=== PATIENT | male | born 1975 | race Hispanic/Latino ===

== ENCOUNTER 2019-11-05 09:15 | Emergency (ER) | payer OTHER, SELFPAY ==
[2019-11-05 09:20] VITALS: BP 131/82; PULSE 81; RESP 18; TEMP 36.4; O2SAT 100
--- NOTE | 2019-11-05 09:26 | ED_ITS ---
HPI - Head Injury General Chief complaint: Head Injury Stated complaint: hit in head at work Time Seen by Provider: 11/05/19 09:20 Source: patient Mode of arrival: Ambulatory Limitations: no limitations History of Present Illness HPI Narrative: Patient is a 44-year-old male who presents with a work-related head injury. A large panel of would fell on top of his head he fell to the ground and there was a brief loss consciousness. He was slightly confused after the event. He is having some neck discomfort no nausea, vomiting or weakness. He is not on any anti-platelet or anticoagulation medication. Complaint: head injury Place: work Loss of Consciousness: yes Location of injury: parietal Related Data Home Medications Medication Instructions Recorded Confirmed ibuprofen 200 mg PO Q6H PRN 11/05/19 11/05/19 Allergies Allergy/AdvReac Type Severity Reaction Status Date / Time No Known Drug Allergies Allergy Verified 11/05/19 09:25 Review of Systems Review of Systems ROS Unobtainable: All systems reviewed & are unremarkable except as noted in HPI and below Constitutional Constitutional: Denies chills, Denies fever(s), Reports headache(s), Denies lethargy and Denies weakness ENT Ears, Nose, Mouth, and Throat: Reports headache(s) Cardiovascular Cardiovascular: Denies chest pain, Denies irregular heart rhythm, Denies lightheadedness, Denies palpitations, Denies dyspnea, Denies dyspnea on exertion and Denies orthopnea Respiratory Respiratory: Denies cough, Denies dyspnea, Denies dyspnea on exertion and Denies wheezing Musculoskeletal Musculoskeletal: Reports as per HPI Integumentary/Breasts Skin/Breast: Denies pruritus, Denies erythema, Denies rash and Denies wounds Neurologic Neurologic: Reports as per HPI, Reports headache(s) and Denies weakness Endocrine Endocrine: Denies palpitations Allergic/Immunologic Allergic/Immunologic: Denies wheezing Patient History Medical History Patient denies medical problems (Acute) Social History Smoking Status: Never smoker Smoking Status: Never smoker alcohol intake frequency: 0-2 drinks per day Substance Use Type: does not use Exam Initial Vital Signs Initial Vital Signs: Vital Signs Temperature 97.6 F 11/05/19 09:20 Pulse Rate 81 11/05/19 09:20 Respiratory Rate 18 11/05/19 09:20 Blood Pressure 131/82 11/05/19 09:20 Pulse Oximetry 100 11/05/19 09:20 GENERAL: Well-appearing, well-nourished and in no acute distress. HEENT: Head contusion noted right parietal area no laceration,EOMI, pupils reactive, face symmetric, moist mucous membranes Neck: Mild vertebral tenderness more on the right side BACK: No vertebral tenderness or step-off CARDIOVASCULAR: Regular rate and rhythm without murmurs, rubs or gallops. RESPIRATORY: Breath sounds equal bilaterally, no wheezes rales or rhonchi. ABDOMEN: Soft, nontender. Normoactive bowel sounds all 4 quadrants. No guarding or rebound. EXTREMITIES: Normal range of motion, no clubbing or edema. Neurovascularly intact NEUROLOGICAL: Alert and oriented x4.Normal gait and speech. Cranial nerves II through XII grossly intact. Strength in upper extremities equal bilaterally SKIN: Warm, dry, no laceration, no petechiae, no rashes or lesions. Scores GCS Lucero coma scale eye opening: Spontaneous Warriors Mark coma scale verbal response: Orientated Warriors Mark coma scale motor response: Obey commands Warriors Mark coma scale total score: 15 Course Orders Ordered: ED Orders 11/05/19 09:25 CT head/brain wo con Stat 11/05/19 09:28 CT cervical spine wo con Stat Discontinued Medications Ibuprofen (Advil) 800 mg PO NOW ONE Stop: 11/05/19 09:49 Last Admin: 11/05/19 09:55 Dose: 800 mg Documented by: CHRISTINE Ketorolac Tromethamine (Toradol) 30 mg IM NOW ONE Stop: 11/05/19 09:48 Last Admin: 11/05/19 09:51 Dose: Not Given Documented by: CHRISTINE Vital Signs Vital signs: Vital Signs - 8 hr 11/05/19 09:20 Temperature 97.6 F Pulse Rate 81 Respiratory Rate 18 Blood Pressure 131/82 Pulse Oximetry 100 MDM - Head Injury Imaging Data CT scan - head: Radiologist's Impression: PROCEDURE: CT HEAD/BRAIN WO CON INDICATIONS: 40 pound weight fall on head and neck right side of head today TECHNIQUE: Noncontrast 4.5 mm thick angled axial sections acquired from the foramen magnum to the vertex, with coronal and sagittal reformats. For radiation dose reduction, the following was used: automated exposure control, adjustment of mA and/or kV according to patient size. COMPARISON: [facility], CT, CT CERVICAL SPINE WO CON, 11/05/2019, 9:30. FINDINGS: Image quality: Diagnostic, with note made of motion artifact. CSF spaces: Basal cisterns are patent. No extra-axial fluid collections. Ventricles are normal in size and shape. Brain: No midline shift. No intracranial masses or hemorrhage. Manzo-white matter interface is normal. Skull and face: There is a soft tissue hematoma seen involving the right later al scalp, as on series 2, image 31. No underlying calvarial fracture is seen. Calvarium and visualized facial bones are intact, without suspicious lesions. Sinuses: There is subtotal opacification seen involving the left maxillary sinus. There is moderate mucosal thickening within the right maxillary sinus. The frontal sinuses are nearly completely opacified. The ethmoid air cells are completely opacified. Moderate mucosal thickening is seen involving the left sphenoid sinus. No significant mastoid abnormality is seen. The medial rincon of the maxillary sinuses have been removed. The middle turbinates are not seen. The remainder of the nasal bony structures are demineralized. There is abnormal soft tissue material seen within the nasal cavity, particularly superiorly. IMPRESSION: Scalp hematoma, without associated fracture. No acute intracranial process is seen. No acute intracranial hemorrhage is seen. Prominent paranasal sinus disease, with prior surgery. Abnormal soft tissue can also seen within the nasal cavity. Polyp disease is suspected. Please correlate with known patient history. Dictated by: Jim Rutherford M.D. on 11/05/2019 at 8:39 Approved by: Jim Rutherford M.D. on 11/05/2019 at 8:42 CT - cervical spine: Radiologist's Impression: PROCEDURE: CT CERVICAL SPINE WO CON INDICATIONS: weight fall on right side of head neck today TECHNIQUE: Noncontrast 3 mm thick sections acquired from the skull base to the T4 level. Sagittal and coronal reformats were then constructed. For radiation dose reduction, the following was used: automated exposure control, adjustment of mA and/or kV according to patient size. COMPARISON: [facility], CT, CT HEAD/BRAIN WO CON, 11/05/2019, 9:30. FINDINGS: Image quality: This examination is somewhat limited by quantum mottle artifact. Bones: No fractures or dislocations. Visualized superior ribs are intact. There is moderate loss of disc height seen at the C6-C7 level, with associated endplate irregularity and postop directed endplate osteophytes. Milder degenerative changes are seen elsewhere. Soft tissues: Prevertebral soft tissues are normal in thickness. No paravertebral hematomas. No apical pneumothoraces. IMPRESSION: No acute fractures. Focal C6-C7 degenerative change. Dictated by: Jim Rutherford M.D. on 11/05/2019 at 8:43 Approved by: Jim Rutherford M.D. on 11/05/2019 at 8:44 [facility] Narrative Medical decision making narrative: The patient is A&O x4 no neurologic deficits. He does have significant contusion on his scalp area. Head CT and cervical CT are negative. Patient likely has mild concussion recommend he take a day off and return to work tomorrow. Discharge Plan Departure Patient Disposition: Home Clinical Impression: Acute head injury Qualifiers: Encounter type: initial encounter Qualified Code(s): S09.90XA - Unspecified injury of head, initial encounter Discharge Date/Time: 11/05/19 10:17 Instructions: Concussion Activity Restrictions/Additional Instructions: *You have been diagnosed with closed head injury, possible concussion symptoms *What to do: Recommend you take today easy and rest at home. Expect to be sore tomorrow and the next day. *Continue to take medications as directed Ibuprofen 800 mg every 8 hours if needed for pain with food *Follow up with your primary care provider in 2-3 days *Return to ER if you should have persistent vomiting, worsening headache, w eakness numbness tingling or any new, worsening or concerning symptoms Prescriptions: No Action ibuprofen 200 mg Tablet 200 mg PO Q6H PRN (Reason: Pain (Scale Score 7-10)) RF: 0 Referrals: [facility] [Outside] Stand Alone Forms: Work Release Note
[2019-11-05] MEDS: IBUPROFEN 400 MG TABLET 800 MG PO (09:55)
== END 2019-11-05 10:17 | disposition home or self-care (01) ==
LOC: ED 09:58
PROVIDERS: Emergency Provider Emergency Medicine
DX: S09.90XA Unspecified injury of head, initial encounter (principal); M54.2 Cervicalgia; W22.8XXA Striking against or struck by other objects, initial encounter; Y99.0 Civilian activity done for income or pay
CPT/HCPCS: 70450; 72125; 99284